=== PATIENT | male | born 1945 | race Caucasian/White ===

== ENCOUNTER 2018-05-07 16:48 | Inpatient (IN) | payer SELFPAY ==
[~2018-05-07] VITALS: Ht 162.6 cm; Wt 75.3 kg
[2018-05-07 16:50] VITALS: Ht 162.6 cm; Wt 75.3 kg
--- NOTE | 2018-05-07 18:23 | NUR ---
PT MEDICATED PER MD ORDERS SEE EMAR. PT IN NO DISTRESS REPORTS INTERMITTENT EPIGASTRIC/MID CP X 2 HRS CONTINUOUS IMPROVEMENT CONSULTANT TO ED. PT GOWNED PLACED ON FULL CM NSR VSS AT THIS TIME. FAMILY AT BEDSIDE. MSE COMPLETED BY DR ARTIS PT INST TO CALL FOR ANY ASSITANCE NEEDED
[2018-05-07 19:03] LABS: BASOPHIL % 0.3 % (0-2); PLATELET COUNT 259 x10^3mcL (130-400); RED CELL DISTRIBUTION WIDTH 13.6 % (11.5-14.5)
[2018-05-07 19:06] LABS: CALCIUM 8.6 mg/dL (8.5-10.1); CARBON DIOXIDE 27.8 mmol/L (21-32); CHLORIDE SERUM 104 mmol/L (98-107); CREATININE SERUM 1.3 mg/dL (0.7-1.3); GLUCOSE SERUM 166 mg/dL (74-106); POTASSIUM SERUM 4.2 mmol/L (3.5-5.1); SODIUM SERUM 139 mmol/L (136-145)
--- NOTE | 2018-05-07 19:08 | NUR ---
REPORT GIVEN TO JENNIFER HAMPTON RESUMING CARE OF PT
--- NOTE | 2018-05-07 19:09 | NUR ---
REPORT RECEIVED FROM AURA HAMPTON. PT'S CARE ASSUMED AT THIS TIME.
[2018-05-07 19:11] LABS: ALBUMIN 3.7 g/dL (3.4-5.0); ALKALINE PHOSPHATASE 71 U/L (46-116); ALT/SGPT 34 U/L (16-63); AST/SGOT 22 U/L (15-37); BILIRUBIN TOTAL 0.5 mg/dL (0.20-1.00); TOTAL PROTEIN, SERUM 7.7 g/dL (6.4-8.2)
--- NOTE | 2018-05-07 19:11 | NUR ---
PT AAOX3, VSS, SPEAKS IN FULL CLEAR SENTENCES, BREATHING EASY AND UNLABORED. REPORTS 3/10 MID-STERNAL EPIGASTRIC "BURNING" PAIN X2-3 HOURS. DENIES ALL OTHER C/O AT THIS TIME. RESTING COMFORTABLY IN BED. IN NO OBVIOUS SIGNS OF DISTRESS A THIS TIME. DAUGHTER REMAINS AT BEDSIDE.
--- NOTE | 2018-05-07 19:20 | NUR ---
PT BEING ADMITTED. AWAITING BED ASSIGNMENT.
[2018-05-07 20:49] LABS: PHOSPHOROUS 2.9 mg/dL (2.5-4.9)
[2018-05-07 20:50] LABS: CHOLESTEROL/HDL RATIO 5.6
--- NOTE | 2018-05-07 20:52 | NUR ---
REPORT GIVEN TO ROSELINE. OPPORTUNITY GIVEN TO ASK QUESTIONS. PT'S BEING TRANSPORTED TO FLOOR (TELE ADMIT) BY RN. PT'S CARE COMPLETED BY THIS RN AT THIS TIME.
[2018-05-07 20:56] LABS: T3 TOTAL 1.28 ng/mL
[2018-05-07 20:57] LABS: FREE T4 0.9 ng/dL (0.76-1.46); FREE THYROXINE INDEX 2.4 ug/dL (1.4-4.5); T4(THYROXINE) 6.8 ug/dL (4.7-13.3)
[2018-05-07 21:18] VITALS: BP 157/85
--- NOTE | 2018-05-07 21:27 | NUR ---
RECEIVED PT FROM ER. PT ADMIT FOR CHEST PAIN , PT IS A/O X4, VERBLA RESPONSIVE, ABLE TO TELL WHAT HE NEEDS. LUNG SOUND CLEAR BILATERAL, NO COUGH, NO SOB, PT IS ON TELE 6, SB, DENY ANY CHEST PAIN AT THIS MOMENT, BOWEL SOUND PRESENT ALL 4 QUADRANTS, NO DISTENTION, NO TENDER. PEDAL PULSE PRESENT BOTH FEET, NO EDEMA, IV AT LEFT AC, NO LEAKING, NO INFITLRATION. ALL ADLS ASSIST, ALL NEED MET, CALL LIGHT IN REACH, WILL CONTINUE TO MONTIOR.
--- NOTE | 2018-05-08 01:45 | NUR ---
Awake and ambulated to the BR. No SOB noted. Denies pain. Urine sample sent to lab.
[2018-05-08 02:16] LABS: microscopic required? NO
[2018-05-08 02:24] LABS: UA SPECIFIC GRAVITY >=1.030 (1.005-1.035); urine erythrocyte NEGATIVE (NEGATIVE)
--- NOTE | 2018-05-08 04:13 | NUR ---
notified of trop level 4.485. lovenox given as ordered. No significant change in condition noted. Denies pain. Not in distress.
[2018-05-08 05:34] VITALS: BP 127/72
[2018-05-08 06:21] LABS: CALCIUM 9.3 mg/dL (8.5-10.1); CARBON DIOXIDE 28.2 mmol/L (21-32); CHLORIDE SERUM 103 mmol/L (98-107); CREATININE SERUM 1.1 mg/dL (0.7-1.3); GLUCOSE SERUM 107 mg/dL (74-106); MAGNESIUM 2.1 mg/dL (1.8-2.4); PHOSPHOROUS 3.7 mg/dL (2.5-4.9); SODIUM SERUM 139 mmol/L (136-145)
[2018-05-08 06:48] LABS: BASOPHIL % 0.5 % (0-2); PLATELET COUNT 238 x10^3mcL (130-400); RED CELL DISTRIBUTION WIDTH 13.4 % (11.5-14.5)
--- NOTE | 2018-05-08 07:10 | NUR ---
RECEIVED PT FROM [facility] [employer]. Jasiel/BRYAN. TELE#6. PT STATES HE HAS A LITTLE BIT OF CHEST PAIN 05/05. DENIES SOB. RESPIRATIONS EQUAL AND UNLABORED ON RA. IV SALINE LOCKED. NO REDNESS OR SWELLING NOTED. WILL CONTINUE TO MONITOR. CALL LIGHT IN REACH. BED IN LOWEST POSITION.
--- NOTE | 2018-05-08 07:55 | NUR ---
Nutrition Note: NSG trigger notification received with no triggers identified on admissions supervisor assessment form on 05/08/18. Pt. admitted with CP per H and P documentations and does not meet high risk criteria. Pt. will be assessed as low risk with initial assessment due 05/15/18.
[2018-05-08 08:52] VITALS: BP 118/69
--- NOTE | 2018-05-08 09:58 | NUR ---
PT SITTING UP IN BED EATING BREAKFAST. GIVEN PO MEDS. TOLERATED WELL. FAMILY AT BEDSIDE. RESPIRATIONS EQUAL AND UNLABORED ON RA. DENIES ANY CHEST PAIN AT THIS TIME. WILL CONTINUE TO MONITOR. CALL LIGHT IN REACH. BED IN LOWEST POSITION.
--- NOTE | 2018-05-08 10:50 | NUR ---
PAGED DR. MACHUCA REGARDING TROPONIN OF 15.314. AWAITING CALL BACK.
--- NOTE | 2018-05-08 12:50 | NUR ---
RECEIVED ORDER FOR HEPARIN DRIP. PT RECEIVED LOVENOX SQ AT 0348 ON 05/08. WILL START HEPARIN DRIP AFTER 1548.
--- NOTE | 2018-05-08 12:51 | NUR ---
CALLED PHARMACIST AND INFORMED HEPARIN DRIP WILL NOT BE STARTED UNTIL 1547.
[2018-05-08 12:52] VITALS: BP 122/76
--- NOTE | 2018-05-08 15:25 | NUR ---
SPOKE WITH JOSE IN CASE MANAGEMENT. PER JOSE WE ARE STILL WAITING FOR DR. VERA'S RECOMMENDATION. JOSE STATED ONCE DR. VERA SEES THE PATIENT SHE WILL BE ABLE TO SPEAK WITH THE FAMILY TO GIVE THEM AN UPDATE.
--- NOTE | 2018-05-08 16:14 | NUR ---
PT SITTING UP IN BED WITH AT BEDSIDE. PT INFORMED ON HEPARIN DRIP. IV FLUSHED WELL. HEPARIN LOADING DOSE GIVEN. HEPARIN DRIP STARTED. VERIFIED WITH ANOTHER RN. WILL CONTINUE TO MONITOR. CALL LIGHT IN REACH. BED IN LOWEST POSITION.
[2018-05-08 17:27] VITALS: BP 118/74
--- NOTE | 2018-05-08 19:03 | NUR ---
PT SITTING UP IN BED. DAUGHTER AT BEDSIDE. UPDATED DAUGHTER ON POC. TELE#6. RESPIRATION EQUAL AND UNLABORED ON RA. DENIES ANY CHEST PAIN AT THIS TIME. HEPARIN DRIP INFUSING AT 900 UNITS. IV PATENT. NO REDNESS OR SWELLING NOTED. WILL ENDORSE TO ASSISTANCE SPECIALIST RN. CALL LIGHT IN REACH. BED IN LOWEST POSITION.
--- NOTE | 2018-05-08 19:58 | NUR ---
RECEIVED PT FROM DAY SHIFT RN. PT IS AAOX4. DENIES ANY HEADACHE, DIZZINESS OR CHEST PAIN AT THIS TIME. TELE #7 SB HR 54. LUNG SOUNDS CTA ON RA WITH NO SIGNS OF RESP DISTRESS NOTED. IV LAC HEPARIN DRIP INFUSING WELL AT 900. CALL BUTTON WITHIN REACH. FAMILY AT BEDSIDE. WILL CONTINUE TO MONITOR.
--- NOTE | 2018-05-08 22:29 | NUR ---
PTT RESULT 56.9 THERAPEUTIC RANGE, NO CHANGE AT THIS TIME. HEPAIN DRIP INFUSING AT 900. NEW PTT ORDER FOR 05/09 0200.
--- NOTE | 2018-05-08 23:04 | NUR ---
PT IS AWAKE TALKING TO DAUGHTER AT BEDSIDE. DENIES ANY PAIN. NO SIGNS OF DISTRESS NOTED. HEPARIN DRIP INFUSING WELL. WILL CONTINUE TO MONITOR.
--- NOTE | 2018-05-09 00:28 | NUR ---
PT REPORTED HAVING A HEADAHCE, MEDICATED PER EMAR. WILL CONTINUE TO MONITOR.
--- NOTE | 2018-05-09 02:33 | NUR ---
PT AWAKE RESTING, DENIES ANY PAIN. NO SIGNS OF DISTRESS NOTED. IV INFUSING WELL. WILL CONTINUE TO MONITOR.
--- NOTE | 2018-05-09 05:04 | NUR ---
PT SLEPT ON AND OFF THROUGHOUT THE NIGHT WITH NO SIGNS OF DISTRESS NOTED. PT DENIES ANY CHEST PAIN OR PRESSURE AT THIS TIME. PT REPORTED HAVING A HEADACHE, MEDICATED PER EMAR WITH RELIEF. IV LAC PATENT AND INFUSING WELL. FOLLOWED HEPARIN DRIP PROTOCOL. CALL BUTTON WITHIN REACH. WILL CONTINUE TO MONITOR AND ENDORSE CARE TO DAY SHIFT RN.
[2018-05-09 05:52] VITALS: BP 138/88
[2018-05-09 06:31] LABS: BASOPHIL % 0.5 % (0-2); PLATELET COUNT 232 x10^3mcL (130-400); RED CELL DISTRIBUTION WIDTH 13.6 % (11.5-14.5)
[2018-05-09 06:42] LABS: CALCIUM 8.6 mg/dL (8.5-10.1); CARBON DIOXIDE 28.4 mmol/L (21-32); CHLORIDE SERUM 104 mmol/L (98-107); CREATININE SERUM 1.1 mg/dL (0.7-1.3); GLUCOSE SERUM 94 mg/dL (74-106); MAGNESIUM 1.9 mg/dL (1.8-2.4); PHOSPHOROUS 3.5 mg/dL (2.5-4.9); POTASSIUM SERUM 4.1 mmol/L (3.5-5.1); SODIUM SERUM 138 mmol/L (136-145)
--- NOTE | 2018-05-09 07:28 | NUR ---
PT IS AWAKE IN BED, NO SIGNS OF DISTRESS NOTED. IV INFUSING HEPARIN DRIP AT 900. ENDORSED CARE TO DAY SHIFT RN, ALL QUESTIONS ADDRESSED.
--- NOTE | 2018-05-09 07:41 | NUR ---
SPOKE WITH PRESCIOUS IN LAB CRITICAL PTT OF 53.4 RECEIVED. PER HEPARIN DRIP PROTOCOL NO CHANGE TO DRIP RATE. PT WILL CONTINUE RECEIVING 900 UNITS/HR. STAT PTT ORDERED FOR 05/10 AT 0500 PER HEPARIN DRIP PROTOCOL. WILL CONTINUE TO MONITOR.
--- NOTE | 2018-05-09 08:09 | NUR ---
PT SITTING UP AT BEDSIDE. TELE#6. DENIES ANY CHEST PAIN OR PRESSURE AT THIS TIME. RESPIRATIONS EQUAL AND UNLABORED ON RA. NO ACUTE RESP DISTRESS NOTED. IV HEPARIN DRIP INFUSING AT 900 UNITS TO LAC. NO REDNESS OR SWELLING NOTED. WILL CONTINUE TO MONITOR. CALL LIGHT IN REACH. BED IN LOWEST POSITION.
[2018-05-09 09:00] VITALS: BP 138/84
--- NOTE | 2018-05-09 09:20 | NUR ---
DOCTORS AT BEDSIDE EXPLAINED TO DAUGHTER AND PATIENT PLAN TO TRANSFER PT TO HIGHER LEVEL OF CARE. INFORMED PT CASE MANAGEMENT WILL FOLLOW UP WITH PT ON TRANSFER PROCESS. INFORMED FAMILY PT WILL STAY IN HOSPITAL UNTIL TRANSFER SINCE PT IS HIGH RISK. FAMILY VERBALIZED UNDERSTANDING.
--- NOTE | 2018-05-09 12:49 | NUR ---
PT SITTING UP IN BED. DENIES ANY CHEST PAIN/PRESSURE. RESPIRATIONS EQUAL AND UNLABORED ON RA. NO ACUTE RESP DISTRESS NOTED. HEPARIN DRIP INFUSING AT 900 UNITS/HR. IV PATENT AND INFUSING. NO REDNESS OR SWELLING NOTED. FAMILY AT BEDSIDE. WILL CONTINUE TO MONITOR. CALL LIGHT IN REACH. BED IN LOWEST POSITION.
--- NOTE | 2018-05-09 13:11 | NUR ---
PT IN BED. AIRPORT GUIDE AT BEDSIDE PERFORMING ECHO. PT DENIES ANY PAIN AT THIS TIME. HEPARIN DRIP INFUSING AT 900 UNITS/HR. WILL CONTINUE TO MONITOR. CALL LIGHT IN REACH. BED IN LOWEST POSITION.
--- NOTE | 2018-05-09 17:12 | NUR ---
PT SITTING UP IN BED. RESPIRATIONS EQUAL AND UNLABORED ON RA. NO ACUTE RESP DISTRESS NOTED. PT DENIES ANY CHEST PAIN AT THIS TIME. IV HEPARIN DRIP INFUSING AT 900 UNITS/HR. NO REDNESS OR SWELLING NOTED. WILL CONTINUE TO MONITOR. CALL LIGHT IN REACH. BED IN LOWEST POSITION.
[2018-05-09 17:30] VITALS: BP 126/71
--- NOTE | 2018-05-09 18:47 | NUR ---
PT SITTING UP IN BED. FAMILY AT BEDISDE. RESPIRATIONS EQUAL AND UNLABORED ON RA. NO ACTUE RESP DISTRESS. TELE#6. DENIES ANY CHEST PAIN/PRESSURE AT THIS TIME. HEPARIN DRIP INFUSING 900 UNIT/HR. IV SITE INTACT. NO REDNESS OR SWELLING NOTED. WILL CONTINUE TO MONITOR. CALL LIGHT IN REACH. BED IN LOWEST POSITION. WILL ENDORSE TO POT FEEDER RN.
--- NOTE | 2018-05-09 19:41 | NUR ---
RECEIVED PT FROM DAY SHIFT RN. PT IS AAOX4. DENIES ANY HEADACHE, DIZZINESS OR CHEST PAIN AT THIS TIME. TELE #7 SB WITH DEPRESSED T WAVE, HR 58. LUNG SOUNDS CTA ON RA WITH NO SIGNS OF RESP DISTRESS NOTED. IV LAC HEPARIN DRIP INFUSING WELL AT 900 PER HEPARIN PROTOCOL. CALL BUTTON WITHIN REACH. FAMILY AT BEDSIDE. WILL CONTINUE TO MONITOR.
[2018-05-09 20:44] VITALS: BP 143/88
--- NOTE | 2018-05-09 23:06 | NUR ---
PT AWAKE RESTING. DENIES ANY PAIN AT THIS TIME. IV INFUSING WELL. WILL CONTINUE TO MONITOR.
--- NOTE | 2018-05-10 00:15 | NUR ---
PT STATES HE JUST HAD A BM REGULAR FOR HIM, DOES NOT WANT TO TAKE MEDICATION AT THIS TIME.
--- NOTE | 2018-05-10 03:05 | NUR ---
PT ASLEEP, NO SIGNS OF DISTRESS NOTED. IV INFUSING WELL. WILL CONTINUE TO MONITOR.
--- NOTE | 2018-05-10 05:00 | NUR ---
PT SLEPT MOST OF THE NIGHT WITH NO SIGNS OF DISTRESS. PT DID NOT REPORT HAVING ANY CHEST PAIN NOR DISCOMFORT. IV LAC PATENT AND INFUSING WELL, HEPARIN DRIP PROTOCOL INFUSING AT 900 AT THIS TIME. PT HAD A BM TODAY, STATES HIS STOMACH FEELS BETTER. PT USES URINAL AT BEDSIDE. WILL CONTINUE TO MONITOR AND ENDORSE CARE TO DAY SHIFT RN.
[2018-05-10 05:32] VITALS: BP 120/76
[2018-05-10 06:01] LABS: BASOPHIL % 0.6 % (0-2); PLATELET COUNT 221 x10^3mcL (130-400); RED CELL DISTRIBUTION WIDTH 13.7 % (11.5-14.5)
[2018-05-10 06:26] LABS: CALCIUM 8.5 mg/dL (8.5-10.1); CHLORIDE SERUM 105 mmol/L (98-107); CREATININE SERUM 0.9 mg/dL (0.7-1.3); GLUCOSE SERUM 91 mg/dL (74-106); PHOSPHOROUS 3.6 mg/dL (2.5-4.9); POTASSIUM SERUM 3.9 mmol/L (3.5-5.1); SODIUM SERUM 139 mmol/L (136-145)
--- NOTE | 2018-05-10 07:30 | NUR ---
RC'D PT RESTING IN BED WITH NO APPARENT SIGNS OF DISTRESS. A/A/O/X4, SPEECH CLEAR AND APPROPRIATE. DENIES RUSS/DIZZINESS. ON TELE, DENIES CHEST PAIN/PRESSURE. PALP PULSES, NO EDEMA NOTED. RESPIRATIONS EQUAL AND UNLABORE.D LUNGS CTA. ON RA, DENIES SOB. ABDOMEN SOFT AND NONTENDER. ACTIVE BS. DENIES N/V. VOIDS FREELY. AMBULATORY. SKIN W/D/I. DENIES PAIN AT THIS TIME. IV PATENT AND INTACT. HEPARIN DRIP INFUSING AT 900UNITS/HR, PT TOLERATING WELL. IV PATENT AND INTACT. NO REDNESS/INFLAMMATION/DISCOMFORT NOTED. BED IN LOW POSITION. CALL LIGHT IN REACH. WILL CONTINUE TO MONITOR
--- NOTE | 2018-05-10 07:39 | NUR ---
NO SIGNS OF DISTRESS NOTED. ENDORSED CARE TO DAY SHIFT RN, ALL QUESTIONS ADDRESSED.
--- NOTE | 2018-05-10 07:55 | NUR ---
PTT 47.7, NO CHANGES NEEDED AT THIS TIME PER HEPARIN PROTOCOL. HEPARIN DRIP CURRENTLY INFUSING AT 900UNIT/HR. PT DENIES CHEST PAIN/PRESSURE. WILL CONTINUE TO MONITOR
--- NOTE | 2018-05-10 09:25 | NUR ---
AM MEDICATIONS GIVEN. PT TOLERATED WELL. RESPIRATIONS EQUAL AND UNLABORED. ON RA, DENIES SOB. DENIES PAIN AT THIS TIME. BED IN LOW POSITION. CALL LIGHT IN REACH. WILL CONTINUE TO MONITOR
[2018-05-10 09:31] VITALS: BP 105/60
[2018-05-10 12:51] VITALS: BP 138/85
--- NOTE | 2018-05-10 13:07 | NUR ---
PT RESTING IN BED WITH NO APPARENT SIGNS OF DISTRESS. RESPIRAITONS EQUAL AND UNLABORED. ON RA, DENIES SOB. PT DENIES PAIN AT THIS TIME. BED IN LOW POSITION. CALL LIGHT IN REACH. WILL CONTINUE TO MONITOR
[2018-05-10 16:50] VITALS: BP 121/78
--- NOTE | 2018-05-10 17:02 | NUR ---
PT RESTING IN BED WITH NO APPARENT SIGNS OF DISTRESS. ON TELE, DENIES CHEST PAIN/PRESSURE. RESPIRATIONS EQUAL AND UNLABORED. ON RA, DENIES SOB. AMBULATORY. NO ACUTE SKIN CHANGES NOTED. PT DENIES PAIN AT THIS TIME. IV PATENT AND INTACT. HEPARIN DRIP INFUSING AT 900UNITS/HR, PT TOLERATING WELL. BED IN LOW POSITION. CALL LIGHT IN REACH. FAMILY PRESENT AT BEDSIDE. WILL CONTINUE TO MONITOR
--- NOTE | 2018-05-10 19:20 | NUR ---
PT RECIEVED FROM THE DAY SHIFT RN, PT IS ALERT AND ORIENTED X4, GERMAN SPEAKING ONLY. DAUGHTER AT THE BEDSIDE, PT HAS NO COMPLAINTS OF PAIN AT THIS TIME. NO SOB NOTED, NO ACUTE DISTRESS NOTED, SAFETY AND COMFORT MEASURES MAINTAINED, BED IN LOWEST POSITION, CALL LIGHT WITHIN REACH. HEPARIN DRIP CURRENTLY INFUSING AT THIS TIME AT 900 CC/HR. WILL CONTINUE TO MONITOR AT THIS TIME.
[2018-05-10 20:30] VITALS: BP 110/72
--- NOTE | 2018-05-11 00:54 | NUR ---
PT IS RESTING IN BED WITH EYES CLOSED AT THIS TIME. NO ACUTE DISTRESS NOTED. NO SOB NOTED. HEPARIN DRIP INFUSING WELL AT THIS TIME. SAFETY AND COMFORT MEASURES MAINTAINED, BED IN LOWEST POSITION, CALL LIGHT WITHIN REACH. WILL CONTINUE TO MONITOR AT THIS TIME.
--- NOTE | 2018-05-11 02:31 | NUR ---
PT IS RESTING IN BED WITH EYES CLOSED AT THIS TIME. NO ACUTE DISTRESS NOTED, PT HEPARIN DRIP IS INFUSING AND INTACT AT THIS TIME. NO SOB NOTED, PT DENIES PAIN AT THIS TIME. NO FACIAL GRIMACING NOTED, NO MOANING OR GROANING NOTED, SAFETY AND COMFORT MEASURES MAINTAINED, WILL CONTINUE TO MONITOR AT THIS TIME.
[2018-05-11 06:09] VITALS: BP 110/72
[2018-05-11 06:41] LABS: BASOPHIL % 0.6 % (0-2); PLATELET COUNT 219 x10^3mcL (130-400); RED CELL DISTRIBUTION WIDTH 13.6 % (11.5-14.5)
--- NOTE | 2018-05-11 06:58 | NUR ---
PT SLEPT IN LONG INTERVALS THROUGHOUT THE SHIFT. HEPARIN DRIP INFUSING WELL AT THIS TIME. NO ACUTE DISTRESS NOTED. NO SOB NOTED, NO COMPLAINT OF PAIN AT THIS TIME. SAFETY AND COMFORT MEASURES MAINTAINED, BED IN LOWEST POSITION, CALL LIGHT WITHIN REACH, WILL ENDORSE CONTINUITY OF CARE TO THE ONCOMING RN. WILL CONTINUE TO MONITOR AT THIS TIME.
[2018-05-11 07:06] LABS: CALCIUM 8.7 mg/dL (8.5-10.1); CARBON DIOXIDE 25.8 mmol/L (21-32); CHLORIDE SERUM 105 mmol/L (98-107); GLUCOSE SERUM 89 mg/dL (74-106); MAGNESIUM 2.1 mg/dL (1.8-2.4); PHOSPHOROUS 3.7 mg/dL (2.5-4.9); POTASSIUM SERUM 3.9 mmol/L (3.5-5.1); SODIUM SERUM 140 mmol/L (136-145)
--- NOTE | 2018-05-11 08:00 | NUR ---
PATIENT SEEN BY THE RESIDENT AND PATIENT FAMILY ADVISED OF THE PLAN OF CARE. PATIENT IS SPAINISH SPEAKING ONLY AND ON HEPARIN AND AT 900 AT THIS TIME PER HOUR. PATIENT HAS BEEN STABLE WITH THE PTT FOR TWO DAYS AND AWAITIGN THE PTT RESULT FROM THE 540 DRAW AND NO RESULTS YET. PATIENT ON MULTIPLE MEDICATIONS ADN THE PATIENT HAS BEEN WITH HISTORY OF SF AND DEPRESSED T WAVES. HE HAS PRE DIABETES ADN DYSPESIA. LUNGS ARE CLEAR AND NO COUGH AT THIS TIME. HE DENIE SSOB WELL. THE CHEST XRAY SHOWS ATHEROSCLEROSIS AND BORDERLIN CARDIOMEGALY. PATIENT AHS BEEN AMBULATORY AND IV TO THE LEFT AC INTACT. PATIENT HAS HAD A BM ON THE AND DENIES GASTRIC PAIN AT THIS TIME. PATIENT TOLERATED THE CCHO DIET AND HAS NO KNOWN ALLERGIES. NO COMPLAINTS OF CHEST PAIN OR SOB AT THIS TIME.
[2018-05-11 08:55] VITALS: BP 124/78
--- NOTE | 2018-05-11 10:30 | NUR ---
CHANGED THE HEPARIN TO 1200 INDICATE FOR PTT OF 34.6. NEXT PTT AT 1400 PLANNED. PATIENT HAS TAKEN HIS MEDICATION AND IS IN GOOD SPIRITES AT THIS TIME
[2018-05-11 13:38] VITALS: BP 120/72
[2018-05-11 16:47] VITALS: BP 101/68
--- NOTE | 2018-05-11 16:54 | NUR ---
PTT AT 120 AND REDUCED THE RATE 300 AND HELD FOR AN HOUR. NEXT PTT AT 2030. PATEINT IN NO DISTRESS AT THIS TIME. DENIES SOB OR CHEST PAIN.
--- NOTE | 2018-05-11 18:11 | NUR ---
PATIENTS HEPARIN ADJUSED TO 900ML PER HOUR AND WAS HELD FOR AN HOUR WELL. PATIENT DENIES PAIN AND IS WITH FAMILY AT BEDSIDE.
--- NOTE | 2018-05-11 19:54 | NUR ---
PT RECIEVED FROM THE DAY SHIFT RN. NO ACUTE DISTRESS NOTED, FAMILY AT THE BEDSIDE, NO SOB NOTED, IV HEPARIN INFUSING WELL AT THIS TIME. NO COMPLAINT OF PAIN AT THIS TIME. SAFETY AND COMFORT MEASURES MAINTAINED, BED IN LOWEST POSITION, CALL LIGHT WITHIN REACH. WILL CONTINUE TO MONITOR AT THIS TIME.
[2018-05-11 20:54] VITALS: BP 101/69
--- NOTE | 2018-05-11 21:22 | NUR ---
PT PTT IS 54.6 NO CHANGE. WILL REORDER PTT FOR 0000 05/12/18.
--- NOTE | 2018-05-11 23:41 | NUR ---
PT IS RESTING IN BED WITH EYES CLOSED AT THIS TIME. IV HEPARIN INFUSION IS INFUSING WELL AT THIS TIME. NO ACUTE DISTRESS NOTED. PT HAS BEEN ALERT AND ORIENTED X4, NO COMPLAINT OF PAIN. PT HAS BEEN CALM AND COOPERATIVE WITH CARE. SAFETY AND COMFORT MEASURES MAINTAINED, BED IN LOWEST POSITION, CALL LIGHT WITHIN REACH, WILL CONTINUE TO MONITOR AT THIS TIME.
--- NOTE | 2018-05-12 00:47 | NUR ---
PTT 53.1 NO CHANGE NOTED PER HEPARIN PROTOCOL. WILL ORDER PTT FOR AM LABS.
[2018-05-12 05:35] VITALS: BP 103/60
--- NOTE | 2018-05-12 06:00 | NUR ---
PT HAS RESTED IN LONG INTERVALS THROUGHOUT THE SHIFT. PT HAS BEEN CALM AND COOPERATIVE WITH CARE, NO ACUTE DISTRESS NOTED. NO SOB NOTED. NO COMPLAINT OF PAIN AT THIS TIME. IV HEPARIN INFUSING AT THIS TIME AT 900 CC. SAFETY AND COMFORT MEASURES MAINTAINED, BED IN LOWEST POSITION, CALL LIGHT WITHIN REACH. WILL ENDORSE CONTINUITY OF CARE TO THE ONCOMING RN.
[2018-05-12 07:44] LABS: CARBON DIOXIDE 27.6 mmol/L (21-32); CHLORIDE SERUM 104 mmol/L (98-107); CREATININE SERUM 1.1 mg/dL (0.7-1.3); GLUCOSE SERUM 81 mg/dL (74-106); POTASSIUM SERUM 3.8 mmol/L (3.5-5.1); SODIUM SERUM 141 mmol/L (136-145)
[2018-05-12 07:57] LABS: BASOPHIL % 0.5 % (0-2); PLATELET COUNT 234 x10^3mcL (130-400); RED CELL DISTRIBUTION WIDTH 13.7 % (11.5-14.5)
--- NOTE | 2018-05-12 08:00 | NUR ---
PATIENT RECEIVED ALERT AND ORIENTED AND SPAINISH SPEAKING ONLY. IV INTACT AND CONTINUE DON HEPARIN ORDERED. APTIENT HAS NA PTT DRAWN BUT THE RESULTS NOT AVAILABLE AT THIS TIME. PATIENT HAS BP AT 104/68, 58, 16, 99.2, 95%. PATIENT ANHS NOTED BUN AT 23.0 AND PATIENT HAS BEEN AMBULATORY IWTHOUT ANY DIFFICULTY. HE HAS A HISTORY OF PRE DIABETES AND DYSPEPSIA. THE LAST BM WAS ON THE AND PATIENT HAS DENIED PAIN AT THIS TIME. PLAN OF CARE IS FOR POSSIBLE TRANSFER TO ANOTHER HOSPITAL FOR HIGHER LEVEL OF CARE. JACK OLMOS SINUS FÉLIX ON THE MONITOR WITH DEPRESSED T WAVE. WILL CONTINUE TO MONITOR INDICATED.
[2018-05-12 09:35] VITALS: BP 1014/68; BP 104/68
--- NOTE | 2018-05-12 10:29 | NUR ---
PATIENT HAD ADJUSTMENT IN JACQUELIN HEPARIN TO 1100 AT THIS TIME. PATIENT RECEIVED BOLUS WELL. NEXT PTT IS AT 1330. PATIENT IS DENYING ANY PAIN OR DISCOMFORT AT THIS TIME.
[2018-05-12 12:21] VITALS: BP 107/64
--- NOTE | 2018-05-12 17:06 | NUR ---
PATIENTS PTT WAS AT 95.9 AND HELD THE HEPARIN AND REDUCED THE INFUSION POST AN HOUR. PATIENT IS IN NO DISTRESS AT THIS TIME. FAMILY IN VISITING. NO CHEST PAIN OR SOB.
[2018-05-12 17:13] VITALS: BP 129/80
--- NOTE | 2018-05-12 19:20 | NUR ---
PT RECIEVED FROM THE DAY SHIFT RN. PT IS CALM AND COOPERATIVE WITH CARE, NO ACUTE DISTRESS NOTED. PT IS CURRENTLY INFUSING HEPARIN DRIP AT THIS TIME RUNNING AT 900 CC AN HOUR. PT DENIES PAIN AT THIS TIME. FAMILY AT THE BEDSIDE. PT IS ALERT AND ORIENTED X4, NO SOB NOTED, PT DENIES CHEST PAIN AT THIS TIME. SAFETY AND COMFORT MEASURES MAINTAINED, BED IN LOWEWST POSITION, CALL LIGHT WITHIN REACH.
[2018-05-12 20:06] VITALS: BP 102/62
--- NOTE | 2018-05-13 00:17 | NUR ---
PT IS RESTING IN BED WITH EYES CLOSED AT THIS TIME. NO ACUTE DISTRESS NOTED. PT IV HEPARIN IS INFUSING WELL AT THIS TIME. PT HAS BEEN CLAM AND COOPERATIVE WITH CARE, NO SOB NOTED. PT DENIES PAIN AT THIS TIME. NO FACIAL GRIMACING NOTED. NO MOANING OR GROANING NOTED. SAFETY AND COMFORT MEASURES MAINTAINED, BED IN LOWEST POSITION, CALL LIGHT WITHIN REACH.
--- NOTE | 2018-05-13 02:33 | NUR ---
PT IS RESTING IN BED WITH EYES CLOSED AT THIS TIME. NO ACUTE DISTRESS NOTED. NO FACIAL GRIMACING NOTED, NO SOB NOTED. PT HAS BEEN CALM AND COOPERATIVE WITH CARE. IV HEPARIN IS CURRENTLY INFUSING AT 900 CC/HR AT THIS TIME. SAFETY AND COMFORT MEASURES MAINTAINED, BED IN LOWEST POSITION CALL LIGHT WITHIN REACH. WILL CONTINUE TO MONITOR AT THIS TIME.
[2018-05-13 03:27] LABS: BASOPHIL % 0.4 % (0-2); PLATELET COUNT 207 x10^3mcL (130-400); RED CELL DISTRIBUTION WIDTH 13.8 % (11.5-14.5)
--- NOTE | 2018-05-13 03:51 | NUR ---
PTT 87.1, PER HEPARIN PROTOCOL IV HEPARIN INFUSION REDUCED TO 700 CC NOW. PT IS RESTING IN BED WITH EYES CLOSED. NO ACUTE DISTRESS NOTED, SAFETY AND COMFORT MEASURES MAINTAINED, BED IN LOWEST POSITION, CALL LIGHT WITHIN REACH, WILL CONTINUE TO MONITOR AT THIS TIME.
[2018-05-13 03:59] LABS: CALCIUM 8.4 mg/dL (8.5-10.1); CARBON DIOXIDE 27.5 mmol/L (21-32); CHLORIDE SERUM 105 mmol/L (98-107); CREATININE SERUM 1.1 mg/dL (0.7-1.3); GLUCOSE SERUM 87 mg/dL (74-106); POTASSIUM SERUM 3.8 mmol/L (3.5-5.1); SODIUM SERUM 140 mmol/L (136-145)
--- NOTE | 2018-05-13 04:06 | NUR ---
LAB CALLED WITH CRITICAL TEST RESULTS. TROPONIN LEVEL 1.048, DR FRAZIER MADE AWARE, NO FURTHER ORDERS AT THIS TIME.
--- NOTE | 2018-05-13 05:05 | NUR ---
PT HAS SLEPT IN LONG INTERVALS THROUGHOUT THE SHIFT. PT HAS BEEN ALERT AND ORIENTED X4 AND CALM AND COOPERATIVE WITH CARE. PT PTT LEVELS WERE 45.7, 85.1, AND 87.1. 0700 AM LAB IS THE NEXT PTT AND HAS BEEN ORDERED. HEPARIN DRIP IS CURRENTLY INFUSING AT 700 CC. NO SOB NOTED. NO COMPLAINTS OF PAIN AT THIS TIME. NO ACUTE DISTRESS NOTED. TROPONIN LEVEL ELEVATED TO 1.048, DR FRAZIER WAS MADE AWARE OF RESULTS AND NO FURTHER ORDERS WERE GIVEN. SAFETY AND COMFORT MEASURES MAINTAINED, BED IN LOWEST POSITION, CALL LIGHT WITHIN REACH. WILL ENDORSE CONTINUITY OF CARE TO THE ONCOMING RN. WILL CONTINUE TO MONITOR AT THIS TIME.
[2018-05-13 05:28] VITALS: BP 125/78
--- NOTE | 2018-05-13 07:40 | NUR ---
PT IS AAOX4, FOLLOWS COMMANDS, DENIES H/A OR DIZZINESS. TELE MONITOR [address] READING SINUS FÉLIX HR 59BPM. NO C/O CHEST PAIN OR PRESSURE. RESP EVEN AND UNLABORED. LUNG SOUNDS CTA. ON R/A. ABDOMEN SOFT, NONTENDER, NONDISTENDED. BOWEL SOUNDS ACTIVE. SKIN CDI. NO EDEMA NOTED. PERIPHERAL PULSES PALPABLE. IV CATH TO LAC PATENT, SITE WNL. HEPARIN DRIP RUNNING AT 700 UNITS/HR, IV LOCK IN PLACE. PT DENIES PAIN OR DISCOMFORT. BED IN LOW POSITION. CALL LIGHT WITHIN REACH.
[2018-05-13 08:30] VITALS: BP 120/73
--- NOTE | 2018-05-13 08:35 | NUR ---
LAB REPORTED THAT PT'S PTT+ 54.8, NO CHANGE TO HEPARIN DRIP RATE AT THIS TIME. PTT ORDERED FOR 1230. PT MADE AWARE.
--- NOTE | 2018-05-13 09:39 | NUR ---
DUE MEDS GIVEN AND TOLERATED WELL. PT DENIES CHEST PAIN OR PRESSURE. RESP EVEN AND UNLABORED. NO DISTRESS NOTED. CALL LIGHT WITHIN REACH.
[2018-05-13 12:03] VITALS: BP 104/65
--- NOTE | 2018-05-13 14:11 | NUR ---
PTT = 37.0, PT REBOLUSED WITH 3000 UNITS AND HEPARIN INCREASED BY 200 UNITS. HEPARIN DRIP NOW RUNNING AT 900 UNITS/HR. PTT ORDERED FOR 1809. PATIENT MADE AWARE.
[2018-05-13 17:00] VITALS: BP 106/72
--- NOTE | 2018-05-13 18:18 | NUR ---
PT AAOX4. RESP EVEN AND UNLABORED. NO RESP DISTRESS NOTED. DENIES C/P AND PRESSURE. TELE IN PLACE READING SINUS FÉLIX. IV CATH TO LAC PATENT, HEPARIN DRIP INFUSING AT 900 UNITS/HOUR, SITE WNL. PT DENIES PAIN AND DISCOMFORT. BED IN LOW POSITION. CALL LIGHT WITHIN REACH. WILL ENDORSE ALL CARE TO NOC RN.
--- NOTE | 2018-05-13 19:00 | NUR ---
RECEIVED PT IN BED RESTING WITH FAMILY AT BEDSIDE. AAOX4,TAMAZIGHT SPEAKING. LUNG SOUND CTA. NO SOB NOTED. DENIES ANY PAIN AT THIS TIME. IV SITE TO LAC,HEPARIN DRIP @ 900UNITS/HR.BED IN LOWEST POSITION,CALL LIGHT WITHIN REACH. WILL CONTINUE TO MONITOR.
[2018-05-13 21:24] VITALS: BP 111/64
--- NOTE | 2018-05-14 00:06 | NUR ---
PTT 50.8. NO CHANGE PER HEPARIN PROTOCOL. WILL ORDER PTT FOR AM LABS.
--- NOTE | 2018-05-14 04:46 | NUR ---
PT APPEARS TO BE SLEEPING. NO DISTRESS NOTED. NO C/O PAIN. BED IN LOWEST POSITION,CALL LIGHT WITHIN REACH. WILL CONTINUE TO MONITOR.
[2018-05-14 06:20] VITALS: BP 110/68
[2018-05-14 06:25] LABS: BASOPHIL % 0.5 % (0-2); PLATELET COUNT 213 x10^3mcL (130-400); RED CELL DISTRIBUTION WIDTH 13.7 % (11.5-14.5)
[2018-05-14 06:40] LABS: CALCIUM 8.9 mg/dL (8.5-10.1); CARBON DIOXIDE 26.4 mmol/L (21-32); CHLORIDE SERUM 104 mmol/L (98-107); CREATININE SERUM 1.1 mg/dL (0.7-1.3); GLUCOSE SERUM 87 mg/dL (74-106); MAGNESIUM 2.1 mg/dL (1.8-2.4); PHOSPHOROUS 3.6 mg/dL (2.5-4.9); POTASSIUM SERUM 4.2 mmol/L (3.5-5.1); SODIUM SERUM 140 mmol/L (136-145)
--- NOTE | 2018-05-14 07:34 | NUR ---
PT AWAKE, ALERT, COOPERATIVE OF CARE. ABLE TO VERBALIZE NEEDS. EFFORTLESS BREATHING ON ROOM AIR. PT REPORTS FEELING WELL, DENIES ANY DISCOMFORT. PT IS ON HEPARIN INFUSION AT 900UNITS/HR IV SITE PATENT TO LAC#20. BED IN LOWEST POSITION, CALL LIGHT WITHIN REACH. RECEIVED CALL FROM LAB: PTT:53.5 NO CHANGE REQUIRED PER PROTOCOL. PTT LAB ORDERED FOR 0500 ON 05/15/18
--- NOTE | 2018-05-14 07:39 | NUR ---
CARE ENDORSED TO DAY NURSE UNIQUE.
[2018-05-14 09:35] VITALS: BP 117/74
--- NOTE | 2018-05-14 10:19 | NUR ---
PASSED MORNING MEDICATIONS. PT TOLERATED WELL. PT DENIES CHEST PAIN, SOB. DENIES ANY DISCOMFORT. EFFORTLESS BREATHING ON ROOM AIR. HEPARIN INFUSION PATENT, SITE INTACT. CALL LIGHT WITHIN REACH.
[2018-05-14 13:12] VITALS: BP 113/75
--- NOTE | 2018-05-14 13:48 | NUR ---
RECEIVED CALL FROM MONITOR. PT'S RHYTHM CHANGE T INVERTED. CURRENT RHYTHM AT 60SR WITH SLIGHT DEPRESSED ST SEGMENT AND INVERTED T WAVE. PT ASYMPTOMATIC, DENIES CHEST PAIN, SOB, DIZZINESS, HEADACHE UNILATERAL UPPER EXTREMITY NUMBNESS OR TINGLING. EFFORTLESS BREATHING ON ROOM AIR. APICAL PULSE AT 60. PT ON HEPARIN INFUSION AT 900UNITS/HR. DR. MARRUFO CONTACTED AND MADE AWARE OF FINDINGS.
[2018-05-14 16:32] VITALS: BP 119/76
--- NOTE | 2018-05-14 18:24 | NUR ---
DR. ALSTON IN TO SEE PT. DISCUSSING PLAN OF CARE. PT VEBALIZED UNDERSTANDING. BED LINENS CHANGED, PT TOLERATING DIET WELL. DENIES CHEST PAIN, SOB, PALPITATIONS. ON HEPARIN INFUSION AT 900UNITS/HR. CALL LIGHT WITHIN REACH.
--- NOTE | 2018-05-14 19:10 | NUR ---
RECEIVED PT IN BED COMFORTABLY RESTING. HEPARIN DRIP INFUSING AT 900CC/HR. BED IN LOWEST POSIITON,CALL LIGHT WITHIN REACH. WILL CONTINUE TO MONITOR.
[2018-05-14 21:12] VITALS: BP 124/67
--- NOTE | 2018-05-15 05:11 | NUR ---
PT ASLEEP. NO DISTRESS NOTED. NO C/O CHEST PAIN OR ANY DISCOMFORT. BED IN LOWEST POSITION,CALL LIGHT WITHIN REACH. WILL CONTINUE TO MONITOR.
[2018-05-15 05:38] VITALS: BP 107/71
[2018-05-15 06:58] LABS: CALCIUM 8.4 mg/dL (8.5-10.1); CARBON DIOXIDE 26.3 mmol/L (21-32); CHLORIDE SERUM 105 mmol/L (98-107); CREATININE SERUM 1.2 mg/dL (0.7-1.3); GLUCOSE SERUM 84 mg/dL (74-106); MAGNESIUM 2.1 mg/dL (1.8-2.4); SODIUM SERUM 141 mmol/L (136-145)
--- NOTE | 2018-05-15 07:27 | NUR ---
CARE ENDROSED TO DAY NURSE TEX.
--- NOTE | 2018-05-15 07:35 | NUR ---
RECEIVED PT IN BED. ASSESSED AND DOCUMENTED. DENIES PAIN THIS TIME. PT IS ON HEPARIN DRIP 900U/HR FOR ELEVATED TROP. PTT IS THERAPEUTIC. SAFTEY PRECAUTIONS ARE IN PLACE. WILL MONITOR.
[2018-05-15 09:45] VITALS: BP 108/70
[2018-05-15] MEDS ORDERED: ZES10 PO (12:25)
[2018-05-15] MEDS ORDERED: NOR5 PO (12:26)
[2018-05-15] MEDS ORDERED: COR3 PO (12:26)
[2018-05-15] MEDS ORDERED: CLOPIDOGREL75 M1 PO (12:27)
[2018-05-15] MEDS ORDERED: LIPITOR80 MG PO (12:27)
[2018-05-15] MEDS ORDERED: GOOD SENSE ASP325 MG PO (12:28)
[2018-05-15 13:00] VITALS: BP 134/76
--- NOTE | 2018-05-15 13:15 | NUR ---
Initial Nutrition Assessment- Dx: CP PMHx: Pre-diabetes, Dyspepsia PSHx: none Labs: 05/15 BUN 23 H, Ca 8.4 L Meds: aspirin, colace, pepcid, zofran, heparin Diet: CCHO diet x 7 days PO Intake: (05/15) 100% of breakfast (05/14) 90% x 2 meals (05/13) 85% x 3 meals. Ht: 5'4 Wt: 166 lb, 75 kg BMI: 28.5 kg/m2 (Overweight) IBW: 130 lb, 59 kg %IBW: 128 UBW: 166-170 lb. Age: 72 yrs old/ Male Food Allergies: none Skin: WNL. Jamel: 22 Edema: none GI: WNL. Last BM 05/14/18 Per H&P, Patient is a 72 year old male who is fairly healthy and only has a history of dyspepsia and pre diabetes who is presenting to the ED with one day history of epigastric pain. Daughter at bedside reported that prior to the symptoms, he had a big meal at home consisting of fried chicken, tortillas, and tacos. Epigastric pain occurred while walking to [employer] from home it was associated with shortness of breath and palpitations. He described the pain as a burning sensation, non radiating, and 10/10 in severity. He reported this has never happened before. He reported calling his daughter right away who brought him to the ED. Daughter reported giving him her own medication for anxiety thinking that he was having a panic attack. Pt seen in bed w/ at bedside, reported of good appetite and is tolerating current diet well. Per lab result review, pt's BG levels are WNL. Problem with: N:no V:no D:no C:no Problems with: Chewing: no Swallowing: no Current appetite: good Recent wt change: none %wt change: n/a Vitamin/Supplement use: none Special diet at home: none Physical activity: none Education: is declined by pt. Estimated Nutritional Needs Based on ideal body weight 59 kg Energy: 4207-3008 kcal/d (25-30 kcal/kg-maintenance) Protein: 59-77 g/d (1-1.3 g/kg- Geriatric maintenance and preservation of lean body mass) Fluid: 1475 ml/d (25ml/kg for Geriatric maintenance) Nutrition Diagnosis *no nutritional problem Intervention *Recommend continuing CCHO diet per MD orders. Monitor/Evaluate Goal: PO intake at least 75% of estimated needs Monitor: PO intake, Labs, GI function F/U in 7 days as low risk 05/22
--- NOTE | 2018-05-15 13:15 | NUR ---
*Recommend continuing [facility] diet per MD orders. Please see Nutritional Assessment for details.
--- NOTE | 2018-05-15 13:30 | NUR ---
PT RESTING IN BED COMFORTABLY. STABLE. DENIES CHEST PAIN. INFORMED PT HE HAS BEEN DISCHARGE. HE SAID HE IS GOING TO CALL HIS DAUGHTER NOW.
[2018-05-15 15:34] VITALS: BP 134/76
--- NOTE | 2018-05-15 17:10 | NUR ---
PT'S DAUGHTER CAME TO PICK HIM UP. DISCHARGE INSTRUCTIONS AND PRESCRIPTIONS GIVEN. PB SIGNED AND SENT WITH PT. IV REMOVED AND DRESSING APPLIED. TELE REMOVED AND RETURNED. DENIES ANY CHEST PAIN. CHEMIST ASSISTANT WHEELED PT DOWN TO LOBBY ACCOMPANIED WITH PT'S DAUGHTER. PT DC HOME.
== END 2018-05-15 17:21 | disposition home or self-care (01) | DRG 280 ==
LOC: ED 16:48 → DU 20:25
PROVIDERS: Emergency Medicine; Internal Medicine Cardiovascular Disease; ADMIT Family Medicine
DX: I21.4 Non-ST elevation (NSTEMI) myocardial infarction (principal); N17.0 Acute kidney failure with tubular necrosis; I16.0 Hypertensive urgency; E78.5 Hyperlipidemia, unspecified; R73.03 Prediabetes; I20.9 Angina pectoris, unspecified; I10 Essential (primary) hypertension; Z83.3 Family history of diabetes mellitus
CPT/HCPCS: 83880; 84439; J1642; J1644; J1650; Q0092